=== PATIENT | female | born 1955 | race Caucasian/White ===

== ENCOUNTER 2018-12-27 08:34 | Day surgery (SDC) | payer MEDICARE ==
[2018-12-27] MEDS ORDERED: Lidocaine 1% PF 2 ML SDV INJECT ONE (08:35)
[2018-12-27] MEDS ORDERED: Propofol 200 MG/20 ML SDV IV ONE (08:35)
[2018-12-27] MEDS ORDERED: Lactated Ringers 1,000 ML IV SCH (09:00)
--- NOTE | 2018-12-27 10:22 | PCM.OPNOTE ---
- General Post-Op/Procedure Note Date of Surgery/Procedure: 12/27/18 Operative Procedure(s): c scope with bx Findings: cecal polyp sigmoid diverticulosis Pre Op Diagnosis: hx of colon polyps Post-Op Diagnosis: cecal polyp. sigmod diverticulosis Anesthesia Technique: EARL Primary Surgeon: Javon Rojas Anesthesia Provider: Garo Castellon Pathology: cecal polyp Complications: None Condition: Good Free Text/Narrative:: see dictation
[2018-12-27 11:08] VITALS: BP 138/78
--- NOTE | 2018-12-27 11:18 | OR ---
DATE OF OPERATION: 12/27/2018 SURGEON: Javon Rojas MD PROCEDURE PERFORMED: Colonoscopy with hot loop snare biopsy. PREOPERATIVE DIAGNOSIS: Personal history of colon polyps. POSTOPERATIVE DIAGNOSIS: Cecal polyp. INDICATIONS FOR PROCEDURE: This is a 63-year-old white female with a history of adenomatous polyps. She is due for a followup scope. She was offered and accepted same. DESCRIPTION OF OPERATION: After an excellent IV sedation was administered, digital rectal exam was performed. No marked abnormality was noted. Flexible colonoscope was inserted and advanced to the cecum. The prep was excellent. The following findings were noted. In the cecum, pedunculated polyp. This was biopsied with a hot loop snare and submitted in a container. The remainder of the ascending colon was unremarkable. Transverse colon was unremarkable. Descending colon, occasional diverticula. Sigmoid, occasional diverticula. Rectum and anus, unremarkable. Colon was deflated. The scope was removed. The patient tolerated the procedure well, was taken to recovery in good condition. Results by letter. /[id number] /MODL
== END 2018-12-27 11:06 | disposition home or self-care (01) ==
LOC: FB.SDS 08:34
PROVIDERS: ATTEND Surgery
DX: Z12.11 Encounter for screening for malignant neoplasm of colon (principal); D12.0 Benign neoplasm of cecum; H90.6 Mixed conductive and sensorineural hearing loss, bilateral; E03.9 Hypothyroidism, unspecified; E66.9 Obesity, unspecified; Z68.28 Body mass index [BMI] 28.0-28.9, adult; J45.909 Unspecified asthma, uncomplicated; Z86.010 Personal history of colon polyps; Z79.890 Hormone replacement therapy; Z88.0 Allergy status to penicillin; Z88.8 Allergy status to other drugs, medicaments and biological substances
CPT/HCPCS: 00811-QZ; 88305; J2001; J2704; J7120